=== PATIENT | male | born 1975 | race African-American/Black ===

== ENCOUNTER 2016-12-20 08:33 | Emergency (ER) | payer BC, OTHER ==
[~2016-12-20] VITALS: Ht 182.9 cm; Wt 100.2 kg
[2016-12-20 08:48] VITALS: TEMP 36.9; Ht 182.9 cm; Wt 100.2 kg
[2016-12-20] MEDS ORDERED: OPTIRAY 320 IV PRN (09:30)
--- NOTE | 2016-12-20 09:39 | EMERGENCY ROOM VISIT NOTE ---
History Report prepared by Abby: Mary Jane Shearer Under the Supervision of: Dr. Jessica Miguel M.D. First contact with patient: 09:03 Chief Complaint: FACIAL PAIN/INJURY Stated Complaint: SWELLING TO FACE/LYMPHNODES History of Present Illness The patient is a 41 year old male who presents to the Emergency Room with complaints of constant right sided facial pain beginning this morning. The patient states that she noticed swelling in front of her right ear and complains of tenderness. He notes that opening his mouth and touching the area worsens his pain. He reports that ice and ibuprofen have not relieved his symptoms. He complains of hot flashes. The patient denies any fever or chills, dental injuries, cavities, headaches, changes in vision, nausea, and vomiting. Source of History: patient Onset: this morning Position: other (facial) Quality: other (tender) Timing: constant Modifying Factors (Worsening): other (opening mouth and touching it) Associated Symptoms: No chills, No fevers, No headache, No nausea, No vomiting Note: He complains of hot flashes and swelling. The patient denies any dental injuries , cavities, changes in vision. Review of Systems See HPI for pertinent positives & negatives. A total of 10 systems reviewed and were otherwise negative. Past Medical & Surgical Surgical Problems: (1) H/O arthroscopy of left knee Family History No pertinent family history stated. Social History Marital Status: single Housing Status: lives alone Occupation Status: student Current/Historical Medications Scheduled Cyanocobalamin (Vitamin B-12), 5,000 MCG PO DAILY Fish Oil ([place]-3), 1 CAP PO DAILY Zinc Gluconate (Zinc), Unknown Dose PO DAILY Allergies Coded Allergies: No Known Allergies (Unverified , 12/20/16) Physical Exam Vital Signs Date Time Temp Pulse Resp B/P Pulse Ox O2 Delivery O2 Flow Rate FiO2 12/20/16 10:45 74 18 139/91 97 Room Air 12/20/16 08:48 36.9 100 18 145/84 96 Room Air Physical Exam Vital signs reviewed. General: Well-appearing, in no significant distress. HEENT: No scleral icterus, PERRLA, neck supple. Atraumatic. Swelling anterior to the right ear over the parotid gland, tender to palpation, non fluctuant, non erythematous. Pain with opening of the jaw but mandible shows full extension. Cardiovascular: Regular rate and rhythm, no extra sounds. Pulmonary: Clear to auscultation bilaterally, normal work of breathing. Abdomen: Soft, nontender, nondistended, positive bowel sounds. Musculoskeletal: Atraumatic, no peripheral edema. Neurologic: Patient awake alert and oriented x 3 Skin: Warm, dry, no rash Medical Decision & Procedures ER Provider Diagnostic Interpretation: CT results as stated below per my review and radiologist interpretation: CT FACIAL-MAXILLOFACIAL WITH FINDINGS: There is mild to moderate mucosal thickening involving anterior ethmoid air cells. Frontal sinuses appear clear. The maxillary sinuses are clear. Sphenoid sinuses clear. The mastoid air cells appear symmetrically aerated. No salivary gland masses are visualized. No orbital masses are visualized. There were no fluid collections to indicate an abscess. There is no hydrocephalus. There is no pathologic adenopathy. IMPRESSION: 1. No pathologic salivary gland masses identified 2. No evidence of pathologic adenopathy 3. No evidence of abscess. Electronically signed by: Prabhjot Chirinos M.D. 12/20/2016 10:32 AM Dictated Date/Time: 12/20/2016 10:28 AM ED Course 0903: Past medical records reviewed. The patient was evaluated in room C5. A complete history and physical examination was performed. 1126: The resident reevaluated and updated the patient. 1213: Upon reevaluation, the patient appeared to have improvement of his symptoms. I discussed findings with the patient. He verbalized agreement of the treatment plan. The patient was discharged home. Medical Decision Differential diagnoses include pruritus, facial abscess, otitis externa, otitis media, dental abscess, trigeminal neuralgia. Medication Reconciliation: I attest that I have personally reviewed the patient' s current medication list. Blood Pressure Screening: Patient was found to have normal blood pressure on screening and does not require follow-up. This patient was evaluated and appeared to be in no significant distress. Patient has a mild swelling and tenderness over the right parotid gland clinically. CT scan of the face was performed with IV contrast. It is essentially normal. The patient was advised of the findings. He was advised to use sour candies to increase salivation. He will use ibuprofen as needed for pain and gentle massage of the gland. He will follow-up with his primary care physician within the next week and ENT thereafter needed. He will return to the ER for worsening of symptoms or any medical concerns. Impression Primary Impression: Sialadenitis Scribe Attestation The scribe's documentation has been prepared under my direction and personally reviewed by me in its entirety. I confirm that the note above accurately reflects all work, treatment, procedures, and medical decision making performed by me. Departure Information Dispostion Home / Self-Care Referrals No Doctor, Assigned (PCP) Forms HOME CARE DOCUMENTATION FORM, IMPORTANT VISIT INFORMATION Patient Instructions My [facility] Additional Instructions - Please keep well hydrated, apply moist heat to the involved area, massage the gland, take lemon drops - Take Tylenol as needed for pain - you can take up to 1000mg every 8 hours. Do not exceed 3000mg in 24 hours - Follow up with your primary care physician in next 7-10 days - If swelling increases, the area become hot, tender, or appears infected, or if yo have concerning symptoms like fever, vomiting, headache, or any other red flag symptoms please return to the Emergency Department - Physician Information: Dr. Augustine Butcher - [phone] - [facility] - [address] [place] [address], [address], [facility]
--- NOTE | 2016-12-20 09:42 | EMERGENCY ROOM VISIT NOTE ---
History First contact with patient: 09:03 Chief Complaint: FACIAL PAIN/INJURY Stated Complaint: SWELLING TO FACE/LYMPHNODES History of Present Illness The patient is a 41 year old male who presents to the Emergency Room with complaints of right sided facial pain and swelling. The swelling is occurring in the region anterior to the right ear and causes tenderness when opening his mouth and palpating the region of the swelling. The patient has tried to ice the area of swelling and also tried to take ibuprofen the pain. The patient states he had hot flashes overnight but denies any fever or chills. Biting down also seems to exacerbate the pain. The patient denies any dental injuries or cavities that may have caused the injury. He denies any headaches, changes in vision, nausea or vomiting. Review of Systems See HPI for pertinent positives and negatives. A total of ten systems were reviewed and were otherwise negative. Past Medical/Surgical History Surgical Problems: (1) H/O arthroscopy of left knee Left knee arthrocentesis for meniscal tear Current/Historical Medications Scheduled Cyanocobalamin (Vitamin B-12), 5,000 MCG PO DAILY Fish Oil ([place]-3), 1 CAP PO DAILY Zinc Gluconate (Zinc), Unknown Dose PO DAILY Allergies Coded Allergies: No Known Allergies (Unverified , 12/20/16) Physical Exam Vital Signs Date Time Temp Pulse Resp B/P Pulse Ox O2 Delivery O2 Flow Rate FiO2 12/20/16 08:48 36.9 100 18 145/84 96 Room Air Physical Exam GENERAL: Awake, alert, well-appearing, in no distress HENT: Normocephalic, atraumatic. Oropharynx unremarkable. Right and Left TM no acute abnormalities. Full extension of mandible but tenderness with movement at right TMJ. No pain with movement of tongue. No acute swelling of the tongue. FACE: Erythema, swelling and tenderness over right parotid gland. Non fluctuant. TEETH: All teeth appear intact with no visible cavities EYES: Normal conjunctiva. Sclera non-icteric. NECK: Supple. No nuchal rigidity. RESPIRATORY: Clear to auscultation. CARDIAC: Regular rate, normal rhythm. Extremities warm and well perfused. Pulses equal. ABDOMEN: Soft, non-distended. No tenderness to palpation. No rebound or guarding. No masses. NEURO: Normal sensorium. No sensory or motor deficits noted. SKIN: No rash or jaundice noted. Medical Decision & Procedures Medical Decision Patient is a 41 year old male with right sided facial swelling Differential Diagnosis: Sialadenitis, Parotitis, Dental Abscess, Facial Abscess , Trigeminal Neuralgia, Otitis Media, Otitis Externa Patient examined and subsequently ordered CT of facial bones with IV contrast - No acute abnormalities visualized on exam Patient diagnosed with sialadenitis based on symptoms and imaging, and recommended supportive treatment with follow up with primary care physician Impression Primary Impression: Sialadenitis Departure Information Dispostion Home / Self-Care Condition GOOD Referrals No Doctor, Assigned (PCP) Patient Instructions [facility]
--- NOTE | 2016-12-20 10:34 | DIAGNOSTIC IMAGING REPORT ---
CT FACIAL-MAXILLOFACIAL WITH CT DOSE: 696.54 mGy.cm CLINICAL HISTORY: Right sided facial swelling, possible parotitis TECHNIQUE: Helical images were acquired during intravenous administration of 92 cc of Optiray 320. COMPARISON STUDY: None. FINDINGS: There is mild to moderate mucosal thickening involving anterior ethmoid air cells. Frontal sinuses appear clear. The maxillary sinuses are clear. Sphenoid sinuses clear. The mastoid air cells appear symmetrically aerated. No salivary gland masses are visualized. No orbital masses are visualized. There were no fluid collections to indicate an abscess. There is no hydrocephalus. There is no pathologic adenopathy. IMPRESSION: 1. No pathologic salivary gland masses identified 2. No evidence of pathologic adenopathy 3. No evidence of abscess. Electronically signed by: Prabhjot Chirinos M.D. 12/20/2016 10:32 AM Dictated Date/Time: 12/20/2016 10:28 AM
[2016-12-20] MEDS ORDERED: OMEG10007 PO (10:35)
[2016-12-20] MEDS ORDERED: ZINC30TA3 PO (10:35)
[2016-12-20] MEDS ORDERED: CYAN10005 PO (10:35)
[2016-12-20 10:45] VITALS: BP 139/91; PULSE 74; O2SAT 97
== END 2016-12-20 12:08 | disposition home or self-care (01) ==
LOC: C.EDC 09:52
DX: K11.20 Sialoadenitis, unspecified (principal)

== ENCOUNTER 2017-12-04 09:50 | Emergency (ER) | payer BC, OTHER ==
[~2017-12-04] VITALS: Ht 185.4 cm; Wt 102.0 kg
[~2017-12-04 09:50] MED LIST: CYAN10005 PO; OMEG10007 PO; ZINC30TA3 PO
[2017-12-04 09:55] VITALS: Ht 185.4 cm; Wt 102.0 kg
[2017-12-04] MEDS ORDERED: LIDOCAINE 1% BUFFERED INJ 5 ML VIAL INFIL ONE (10:15)
[2017-12-04] MEDS ORDERED: GLUCTAB7 PO (10:34)
[2017-12-04] MEDS ORDERED: MULTTAB58 PO (10:34)
[2017-12-04] MEDS ORDERED: [UNRECOGNIZED DRUG - OTHER] PO (10:34)
[2017-12-04] MEDS ORDERED: KRIL1000 PO (10:35)
[2017-12-04] MEDS ORDERED: ZINCCAP PO (10:35)
--- NOTE | 2017-12-04 10:46 | DIAGNOSTIC IMAGING REPORT ---
R ELBOW 2 VIEWS CLINICAL HISTORY: Right elbow pain COMPARISON: None. DISCUSSION: The fat pads are not displaced. No fractures or dislocations are visualized. There are no erosive or destructive changes. IMPRESSION: 1. No fractures or dislocations identified 2. No evidence of erosive disease Electronically signed by: Prabhjot Chirinos M.D. 12/04/2017 10:44 AM Dictated Date/Time: 12/04/2017 10:44 AM
[2017-12-04 11:16] VITALS: BP 146/87; PULSE 102; TEMP 36.8; O2SAT 97
[2017-12-04] MEDS ORDERED: TRAM-10 PO (12:49)
--- NOTE | 2017-12-04 15:54 | EMERGENCY ROOM VISIT NOTE ---
History First contact with patient: 10:01 Chief Complaint: ELBOW PAIN/INJURY Stated Complaint: FRACTURED ELBOW, TOE SUTURES History of Present Illness The patient is a 42 year old male who presents to the Emergency Room with 2 complaints today. He reports an open wound on the bottom of his left fifth toe that is going to need a few stitches. He reports that the skin split 1 week ago. He has been trying to put superglue on it without success. He denies any pain, redness or drainage from the wound. The patient also complains of persistent right elbow pain after bumping it a few weeks ago. He is concerned that he has a fracture. He denies any paresthesias or numbness of the right upper extremity and he denies any pain extending into the forearm or upper arm. The patient is right-hand dominant, and rates his discomfort a 6 out of 10. Review of Systems 10 system review was performed and was negative except for pertinent positives and negatives as indicated in history of present illness Past Medical/Surgical History Medical Problems: (1) Sialoadenitis, Unspecified (2) Tobacco Use Disorder Surgical Problems: (1) H/O arthroscopy of left knee Family History Unremarkable Social History Smoking Status: Current Every Day Smoker Alcohol Use: occasionally Marital Status: single Housing Status: lives alone Occupation Status: student Current/Historical Medications Scheduled Cyanocobalamin (Vitamin B-12), 5,000 MCG PO DAILY Fish Oil ([place]-3), 1 CAP PO DAILY Qsgqhbthwex-Oxzwcbtvwuh-Msb C- (Glucosamine Chondroitin), 1,500 MG PO DAILY Krill Oil (Krill Oil), 1,000 MG PO DAILY Multiple Vitamin (Multivitamin), 1 TAB PO DAILY Zinc W/ Magnesium Aspartate-Vi (Zinc Magnesium Aspartate), 1 TAB PO HS [Nootropic], 1 DOSE PO DIRECTED Scheduled PRN Tramadol (Ultram), 1-2 TAB PO Q4H PRN for Pain Physical Exam Vital Signs Date Time Temp Pulse Resp B/P (MAP) Pulse Ox O2 Delivery O2 Flow Rate FiO2 12/04/17 11:16 36.8 102 20 146/87 97 12/04/17 09:55 36.8 102 20 146/87 97 Room Air Physical Exam CONSTITUTIONAL: Healthy and well nourished. Alert and oriented X 3 with positive affect. Patient does not appear in any acute distress. HEENT: Normocephalic, atraumatic. Pupils equal, round and reactive. NECK: Full active range of motion without discomfort. MUSCULOSKELETAL: Examination of the right elbow does not show any soft tissue ecchymosis, erythema, abrasions or lacerations. The patient has mild discomfort with flexion and extension of the elbow. No obvious joint effusion appreciated. Examination of the left foot shows a 1 cm laceration within the plantar MTP skin crease of the fifth toe. No erythema or drainage noted. Good tissue granulation is noted. Capillary refill is less than 2 seconds. INTEGUMENTARY: No rash or other significant dermatologic conditions noted. NEUROLOGIC: Right hand and fingers are sensory intact, as is the left fifth toe. Medical Decision & Procedures ER Provider Diagnostic Interpretation: My interpretation of right elbow x-rays does not show any fracture, dislocation or obvious joint effusion. Radiologist report is as follows: R ELBOW 2 VIEWS CLINICAL HISTORY: Right elbow pain COMPARISON: None. DISCUSSION: The fat pads are not displaced. No fractures or dislocations are visualized. There are no erosive or destructive changes. IMPRESSION: 1. No fractures or dislocations identified 2. No evidence of erosive disease Procedure Laceration repair of the left fifth toe was performed under local anesthesia after receiving verbal consent from the patient. Using buffered 1% lidocaine without epinephrine, good local anesthesia was administered. The area was cleansed with iodine, then the wound was irrigated with approximately 100 cc of normal saline prior to closure with 4-0 nylon simple interrupted sutures. ED Course Patient history and physical exam were performed. Nurse's notes were reviewed. Vital signs were reviewed, showing mild blood pressure elevation. The patient refused any analgesics. Regarding the patient's toe laceration, I explained that this would be considered a delayed closure. I explained the risks of infection with closure. The patient voiced understanding, but still requested laceration repair because he cannot get it to heal otherwise. Laceration repair was performed under local anesthesia. X-rays of the right elbow were normal. The patient was provided additional verbal and written wound care instructions. He was instructed to follow-up with his PCP for suture removal in 10-12 days. The patient was encouraged to follow-up with his PCP or orthopedics with any persistent right elbow pain. The patient was happy with plan of care, voiced understanding of all discharge instructions, and denied any significant pain at the time of discharge. After the patient was discharged, he did call back and requested a prescription for something for pain that will make him drowsy. I did discuss Ultram with the patient, and he agreed that this would be a good choice. The patient was provided a prescription for Ultram 50 mg, dispense #15 with no refills. Medical Decision [place] Drug Monitoring Program Search Results: patient reviewed within database, no issues identified Medication Reconcilliation Current Medication List: was personally reviewed by me Blood Pressure Screening Patient's blood pressure: Normal blood pressure Impression Primary Impression: Laceration of fifth toe, left Additional Impression: Right elbow pain Departure Information Prescriptions Tramadol (Ultram) 50 Mg Tab 1-2 TAB PO Q4H Y for Pain, #20 TAB For Initial Treatment Prov: Alex Hampton PA 12/04/17 Referrals No Doctor, Assigned (PCP) Patient Instructions My [facility] Problem Qualifiers Primary Impression: Laceration of fifth toe, left Encounter type: initial encounter Qualified Codes: S91.115A - Laceration without foreign body of left lesser toe(s) without damage to nail, initial encounter
== END 2017-12-04 11:17 | disposition home or self-care (01) ==
LOC: C.EDB 09:53 → C.EDC 11:17
DX: S91.115A Laceration without foreign body of left lesser toe(s) without damage to nail, initial encounter (principal); X58.XXXA Exposure to other specified factors, initial encounter; M25.521 Pain in right elbow; F17.200 Nicotine dependence, unspecified, uncomplicated; Z98.890 Other specified postprocedural states